=== PATIENT | female | born 1985 | race Caucasian/White ===

== ENCOUNTER 2021-11-12 13:19 | Outpatient (REF) | payer MEDICAID, SELFPAY ==
--- NOTE | ~2021-11-12 | US_ITS ---
EXAMINATION: US DIAGNOSTIC ULTRASOUND BREAST, RIGHT CLINICAL INFORMATION: Right breast mass. COMPARISON: April 05, 2019. TECHNIQUE: Ultrasound of the breast is performed with real-time jackson scale imaging and color Doppler. FINDINGS: Targeted right breast ultrasound demonstrates a 4.5 x 4.0 x 4.5 cm heterogeneous hypoechoic mass at approximately 3:00 position 3 cm from the nipple. Just posterior to this and possibly attached to it there is a heterogeneous hypoechoic structure measuring approximately 1.5 x 0.9 cm in size. There is increase through sound transmission. The lesion is wider than it is tall. No internal vascularity is present however the anterior margin is not as smoothly circumscribed and there is adjacent vascularity present. No edema within the adjacent tissues is seen. The overlying skin is not reddened and there is no complaint of pain unless she palpates the lesion. No Brownian movement is seen to suggest debris within a cyst. This may possibly represent a complex cyst however a solid mass such as a phyllodes tumor cannot be excluded and attempt at aspiration with ultrasound guidance is recommended. If the lesion does not aspirate then core biopsy is recommended. Results are discussed with the patient at time of visit. [facility] patient navigator called above recommendation to Mary at referring provider's office. US/US breast RT limited IMPRESSION: Development of right breast mass as described for which attempted aspiration is recommended. If the lesion does not aspirate then recommend core biopsy. ASSESSMENT: BI-RADS 4: Suspicious (subcategory 4A: Low suspicion for malignancy) RECOMMENDATION: Ultrasound-guided aspiration/biopsy
--- NOTE | ~2021-11-12 | MM_ITS ---
EXAMINATION: MM DIAGNOSTIC DIGITAL BREAST TOMOSYNTHESIS, BILATERAL TARGETED RIGHT BREAST ULTRASOUND CLINICAL INFORMATION: Right breast pain. The lifetime risk of breast cancer based on the Tyrer-Cuzick Model is 13.7%. COMPARISON: Mammography: 04/05/2019. TECHNIQUE: Digital breast tomosynthesis is performed in both the craniocaudal and mediolateral oblique views along with computer-aided detection (CAD). Synthesized 2D images are generated from the tomosynthesis. FINDINGS: There are scattered areas of fibroglandular density (ACR BI-RADS breast composition Category b). There is a stable parenchymal pattern within the left breast with no new abnormal dominant mass or suspicious grouping of microcalcifications. Within the right breast anteriorly the patient has developed a partially circumscribed 4.4 x 4.7 x 4.7 cm mass and directly posterior to this there is a 1.0 x 1.6 cm density. Targeted right breast ultrasound demonstrates a 4.5 x 4.0 x 4.5 cm heterogeneous hypoechoic mass at approximately 3 o'clock position 3 cm from the nipple. Just posterior to this and possibly attached to it there is a heterogeneous hypoechoic structure measuring approximately 1.5 x 0.9 cm in size. There is increase through sound transmission. The lesion is wider than it is tall. No internal vascularity is present however the anterior margin is not as smoothly circumscribed and there is adjacent vascularity present. No edema within the adjacent tissues is seen. The overlying skin is not reddened and there is no complaint of pain. No Brownian movement is seen to suggest debris within a cyst. This may possibly represent a complex cyst however a solid mass such as a phyllodes tumor cannot be excluded and attempt at aspiration with ultrasound guidance is recommended. If the lesion does not aspirate, then core biopsy is recommended. Results are discussed with the patient at time of visit. [facility] patient navigator called above recommendation to Mary at referring provider's office. MM/MM tomosynthesis diagnostic BI IMPRESSION: Development of right breast mass as described for which attempted aspiration is recommended. If the lesion does not aspirate, then recommend core biopsy. ASSESSMENT: BI-RADS 4: Suspicious (subcategory 4A: Low suspicion for malignancy). RECOMMENDATION: Ultrasound-guided aspiration/biopsy.
== END 2021-11-12 13:20 | disposition home or self-care (01) ==
LOC: HO.MAMMO 13:19
PROVIDERS: PCP Internal Medicine Geriatric Medicine; Visit Provider Internal Medicine
DX: N64.4 Mastodynia (principal); N63.15 Unspecified lump in the right breast, overlapping quadrants
CPT/HCPCS: 76642; 77062; 77066

== ENCOUNTER → 2021-11-19 08:32 | Outpatient (BNVA) | payer MEDICAID, SELFPAY | PROVIDERS: PCP Internal Medicine Geriatric Medicine; Referring Provider Internal Medicine Geriatric Medicine; Visit Provider Surgery | DX: R92.8 Other abnormal and inconclusive findings on diagnostic imaging of breast (principal); N63.10 Unspecified lump in the right breast, unspecified quadrant | CPT/HCPCS: 99202 ==

== ENCOUNTER 2021-11-22 07:44 | Outpatient (REF) | payer MEDICAID, SELFPAY ==
--- NOTE | ~2021-11-22 | US_ITS ---
EXAMINATION: US ULTRASOUND-GUIDED CYST ASPIRATION BREAST, RIGHT MM DIAGNOSTIC DIGITAL BREAST TOMOSYNTHESIS, RIGHT CLINICAL INFORMATION: Age 36 with tender mass right breast subareolar 3:00 position measuring approximately 4.7 cm. Aspiration recommended to confirm cyst. If lesion will not aspirate, then core biopsy. COMPARISON: Diagnostic mammography and targeted right breast ultrasound 11/12/2021 FINDINGS: Proper informed consent is obtained from the patient after discussion of the procedure, potential risks and complications, and alternatives. Patient was given an opportunity for questions. The patient appeared to understand. The patient consented to the procedure and signed the consent form. Hospital provided buggy ladle tender assisted for both the consent and throughout the procedure. LOCATION: 3:00 subareolar GUIDANCE: Ultrasound-guided; aseptic technique. LESION: Macrolobulated mass with superficial peripheral hyperemia, overall size approximately 4.7 x 4.4 x 4.7 cm. APPROACH: Oblique caudal cranial ANESTHESIA: 7 mL carbonated 1% lidocaine NEEDLE: 18-gauge spinal. ASPIRATION: 39 mL purulent appearing opaque fluid. Two 10 mL syringes of fluid sent to lab for Gram stain, culture and sensitivity. Following aspiration, the cavity collapsed down to 2 linear arms, the more superficial 0.7 cm thickness by 4.7 x 3.7 cm and the deeper extension measuring 2.9 cm in length by 0.7 cm in thickness. There is surrounding hyperemia on color Doppler, predominantly superficial side subdermal. Results called to rn medical surgical (Carmel) for Dr. Gilliam. Patient will receive prescription for antibiotic coverage from Dr. Gilliam's office. Arrangements will be made for follow-up ultrasound and clinical evaluation. [facility]igator to assist in follow up appointments. US/US breast cyst asp RT IMPRESSION: Aspiration 39 mL purulent appearing opaque fluid. Microbiology pending. ASSESSMENT: BI-RADS 3: Probably Benign RECOMMENDATION: Patient will receive prescription for antibiotic coverage from Dr. Gilliam's office today. Arrangements will be made for follow-up ultrasound and clinical evaluation. This patient's information was entered into a reminder system with a target due date for their next mammogram.
== END 2021-11-22 07:45 | disposition home or self-care (01) ==
LOC: HO.MAMMO 07:44
PROVIDERS: PCP Internal Medicine Geriatric Medicine; Visit Provider Surgery
DX: N63.10 Unspecified lump in the right breast, unspecified quadrant (principal); R92.8 Other abnormal and inconclusive findings on diagnostic imaging of breast
CPT/HCPCS: 19000; 87071; 87073; 87205

== ENCOUNTER → 2021-12-02 11:10 | Outpatient (BNVA) | payer MEDICAID, SELFPAY | PROVIDERS: PCP Internal Medicine Geriatric Medicine; Referring Provider Internal Medicine Geriatric Medicine; Visit Provider Surgery | DX: Z48.817 Encounter for surgical aftercare following surgery on the skin and subcutaneous tissue (principal); R92.8 Other abnormal and inconclusive findings on diagnostic imaging of breast; Z87.2 Personal history of diseases of the skin and subcutaneous tissue | CPT/HCPCS: 99212 ==

== ENCOUNTER 2021-12-07 07:59 | Outpatient (REF) | payer MEDICAID, SELFPAY ==
--- NOTE | ~2021-12-07 | US_ITS ---
EXAMINATION: US DIAGNOSTIC ULTRASOUND BREAST, RIGHT US ULTRASOUND-GUIDED CYST ASPIRATION BREAST, RIGHT CLINICAL INFORMATION: Follow-up abscess right breast. Re aspirate if recurrent. Prior aspiration 11/22/2021 (Gram stain: 4+ polys; 4+ red blood cells; No organisms seen. Routine Culture (final): Corynebacterium species 2+). COMPARISON: Right breast ultrasound 11/12/2021, ultrasound-guided right breast aspiration 11/22/2021. US BREAST, RIGHT TECHNIQUE: Ultrasound of the right breast is performed with real-time jackson scale imaging and color Doppler. FINDINGS: There is a complicated cyst subareolar 3:00 recurrent fluid collection with surrounding hyperemia and overall dimensions 3.8 x 2.4 x 3.5 cm. Prior dimensions pre aspiration were 4.7 x 4.4 x 4.7 cm and post aspiration mentions 0.7 cm thickness by 4.7 x 3.7 cm. No skin thickening or edema tracking in soft tissue planes. Results called to office (NIKKO Cooley) for Dr. Gilliam at time of imaging. US ASPIRATION BREAST, RIGHT FINDINGS: Proper informed consent is obtained from the patient after discussion of the procedure, potential risks and complications, and alternatives. Patient was given an opportunity for questions. The patient appeared to understand. The patient consented to the procedure and signed the consent form. Hospital provided curator of manuscripts assisted for the consent and throughout the procedure. LOCATION: 3:00 retroareolar GUIDANCE: Ultrasound-guided; aseptic technique. LESION: Complicated cyst with surrounding hyperemia and overall dimensions 3.8 x 2.4 x 3.5 cm. APPROACH: Oblique mediolateral. ANESTHESIA: 5 mL carbonated 1% lidocaine. NEEDLE: 18-gauge spinal. ASPIRATION: 17 mL hemorrhagic purulent opaque fluid aspirated. Syringe with 11 mL fluid sent to laboratory for microbiology (Gram stain, culture and sensitivity). Following aspiration, the cavity collapsed measuring approximately 0.6 cm in thickness, 3.8 cm x 4.1 cm across. Patient tolerated procedure well with no immediate complication. Results called to biomedical photographer (Polly) for Dr. Gilliam. Patient provided appointment to follow-up with Dr. Gilliam and follow up ultrasound. US/US breast cyst asp RT IMPRESSION: 1. Recurrence subareolar abscess from post aspiration size 11/22/2021. Size is smaller than prior pre aspiration measurements. 2. Aspiration 17 mL hemorrhagic clearly opaque fluid. Microbiology pending. ASSESSMENT: BI-RADS 3: Probably Benign RECOMMENDATION: Follow-up clinical appointment with Dr. Gilliam. Follow-up ultrasound right breast.
--- NOTE | ~2021-12-07 | US_ITS ---
EXAMINATION: US DIAGNOSTIC ULTRASOUND BREAST, RIGHT US ULTRASOUND-GUIDED CYST ASPIRATION BREAST, RIGHT CLINICAL INFORMATION: Follow-up abscess right breast. Re aspirate if recurrent. Prior aspiration 11/22/2021 (Gram stain: 4+ polys; 4+ red blood cells; No organisms seen. Routine Culture (final): Corynebacterium species 2+). COMPARISON: Right breast ultrasound 11/12/2021, ultrasound-guided right breast aspiration 11/22/2021. US BREAST, RIGHT TECHNIQUE: Ultrasound of the right breast is performed with real-time jackson scale imaging and color Doppler. FINDINGS: There is a complicated cyst subareolar 3:00 recurrent fluid collection with surrounding hyperemia and overall dimensions 3.8 x 2.4 x 3.5 cm. Prior dimensions pre aspiration were 4.7 x 4.4 x 4.7 cm and post aspiration mentions 0.7 cm thickness by 4.7 x 3.7 cm. No skin thickening or edema tracking in soft tissue planes. Results called to office (NIKKO Cooley) for Dr. Gilliam at time of imaging. US ASPIRATION BREAST, RIGHT FINDINGS: Proper informed consent is obtained from the patient after discussion of the procedure, potential risks and complications, and alternatives. Patient was given an opportunity for questions. The patient appeared to understand. The patient consented to the procedure and signed the consent form. Hospital provided health services information specialist assisted for the consent and throughout the procedure. LOCATION: 3:00 retroareolar GUIDANCE: Ultrasound-guided; aseptic technique. LESION: Complicated cyst with surrounding hyperemia and overall dimensions 3.8 x 2.4 x 3.5 cm. APPROACH: Oblique mediolateral. ANESTHESIA: 5 mL carbonated 1% lidocaine. NEEDLE: 18-gauge spinal. ASPIRATION: 17 mL hemorrhagic purulent opaque fluid aspirated. Syringe with 11 mL fluid sent to laboratory for microbiology (Gram stain, culture and sensitivity). Following aspiration, the cavity collapsed measuring approximately 0.6 cm in thickness, 3.8 cm x 4.1 cm across. Patient tolerated procedure well with no immediate complication. Results called to medical superintendent (Polly) for Dr. Gilliam. Patient provided appointment to follow-up with Dr. Gilliam and follow up ultrasound. US/US breast RT limited IMPRESSION: 1. Recurrence subareolar abscess from post aspiration size 11/22/2021. Size is smaller than prior pre aspiration measurements. 2. Aspiration 17 mL hemorrhagic clearly opaque fluid. Microbiology pending. ASSESSMENT: BI-RADS 3: Probably Benign RECOMMENDATION: Follow-up clinical appointment with Dr. Gilliam. Follow-up ultrasound right breast.
[2021-12-07] MEDS: Sodium Bicarbonate 8.4% 50 MEQ/50 ML VIAL SUBCUT (09:17)
[2021-12-07] MEDS: Lidocaine HCl 1 % 20 ML VIAL 9 ML SUBCUT (09:18)
== END 2021-12-07 08:00 | disposition home or self-care (01) ==
LOC: HO.MAMMO 07:59
PROVIDERS: Visit Provider Surgery
DX: R92.8 Other abnormal and inconclusive findings on diagnostic imaging of breast (principal); N63.10 Unspecified lump in the right breast, unspecified quadrant
CPT/HCPCS: 19000; 76642; 87071; 87073; 87205

== ENCOUNTER 2021-12-14 09:51 | Outpatient (REF) | payer MEDICAID, SELFPAY ==
--- NOTE | ~2021-12-14 | US_ITS ---
EXAMINATION: US DIAGNOSTIC ULTRASOUND BREAST, RIGHT CLINICAL INFORMATION: Follow-up sterile abscess right breast. Prior re-aspiration demonstrates no organisms or growth. COMPARISON: Ultrasound right breast 12/07/2021, 11/22/2021, 11/12/2021. TECHNIQUE: Ultrasound right breast is targeted to the retroareolar region using grayscale imaging and color Doppler without and with harmonics. FINDINGS: The fluid collection 3:00 retroareolar region is increased in size from prior post aspiration dimensions but decreased in size when compared with prior pre aspiration dimensions. There is no new collection or architectural abnormality. No skin thickening or edema tracking in soft tissue planes. The overall size is 2.8 x 1.5 x 2.1 cm with peripheral mural echogenicity and inner anechoic fluid component. The fluid component measures 2.0 x 1.2 x 1.3 cm compared with prior dimensions 3.8 x 2.4 x 3.5 cm on prior exam 12/07/2021 and prior dimensions 4.7 x 4.4 x 4.7 cm on exam 11/22/2021. There is mild surrounding hyperemia again seen on color Doppler. Results are discussed with the patient at time of visit, using an insulation manager. Patient notes no right breast tenderness and there is no erythema. Patient feels markedly improved from prior visits. Results discussed with Dr. Gilliam. Management plan is for patient to return to Dr. Lentz for follow-up clinical visit in 2 weeks and targeted right breast ultrasound on same day. US/US breast RT limited IMPRESSION: Right retroareolar collection with current dimensions decreased when compared with prior pre-aspiration dimensions. No new collection. ASSESSMENT: BI-RADS 3: Probably Benign RECOMMENDATION: Patient to follow-up with Dr. Gilliam for clinical appointment in 2 weeks and targeted right breast ultrasound on same day.
== END 2021-12-14 09:52 | disposition home or self-care (01) ==
LOC: HO.MAMMO 09:51
PROVIDERS: Visit Provider Surgery
DX: N61.1 Abscess of the breast and nipple (principal); R92.8 Other abnormal and inconclusive findings on diagnostic imaging of breast
CPT/HCPCS: 76642; 99212

== ENCOUNTER 2021-12-31 11:06 | Outpatient (REF) | payer MEDICAID, SELFPAY ==
--- NOTE | ~2021-12-31 | US_ITS ---
EXAMINATION: US DIAGNOSTIC ULTRASOUND BREAST, RIGHT CLINICAL INFORMATION: Follow-up sterile abscess right breast. Patient feels clinically well. COMPARISON: Ultrasound right breast 12/14/2021, 12/07/2021 (re-aspiration), 11/22/2021 (aspiration), 11/12/2021. TECHNIQUE: Ultrasound of the right anterior breast is performed with real-time jackson scale imaging and color Doppler. FINDINGS: The complex fluid collection 3:00 retroareolar region has overall dimensions approximately 3.0 x 1.9 x 2.4 cm compared with prior measurements 2.8 x 1.5 x 2.1 cm. There is increased internal peripheral mural echogenicity likely granulation tissue. The fluid component inside the lesion is decreased, current measurements 1.7 x 0.8 x 1.4 cm compared with prior measurements 2.0 x 1.2 x 1.3 cm. Results called and discussed with Dr. Gilliam at time of dictation visit. Results also discussed with patient at time of appointment using an pulverizer operator. Patient to follow-up right breast ultrasound with surgical clinical follow-up appointment same day in 4-6 weeks. US/US breast RT limited IMPRESSION: The complex fluid collection 3:00 retroareolar right breast has similar overall dimensions but with decreased internal fluid component. ASSESSMENT: BI-RADS 3: Probably Benign RECOMMENDATION: Targeted right breast ultrasound in 4-[address] Gilliam to follow ultrasound, same day. This patient's information was entered into a reminder system with a target due date for their next breast imaging.
== END 2021-12-31 11:07 | disposition home or self-care (01) ==
LOC: HO.MAMMO 11:06
PROVIDERS: Visit Provider Surgery
DX: N61.1 Abscess of the breast and nipple (principal)
CPT/HCPCS: 76642; 99212

== ENCOUNTER 2022-02-08 12:52 | Outpatient (REF) | payer MEDICAID, SELFPAY ==
--- NOTE | ~2022-02-08 | US_ITS ---
EXAMINATION: US DIAGNOSTIC ULTRASOUND BREAST, RIGHT CLINICAL INFORMATION: Follow-up sterile abscess right breast. No discharge. Patient notes no residual symptoms. Age 36. TC score 14%. COMPARISON: Targeted right breast ultrasound 12/31/2021, 12/14/2021, 12/07/2021, 11/12/2021; right breast ultrasound-guided cyst aspiration 12/07/2021 and 11/22/2021. TECHNIQUE: Ultrasound of the right breast is performed with real-time jackson scale imaging and color Doppler. FINDINGS: The fluid collection 3:00 retroareolar region is decreased in size from prior exam 12/31/2021 and now appears anechoic. The thickness is 0.8 cm compared with prior measurement 1.9 cm. The transverse and longitudinal dimensions are similar. Overall dimensions are 2.7 x 0.8 x 2.3 cm compared with prior dimensions 3.0 x 1.9 x 2.4 cm. There is some color flow superficial to the collection but not circumferentially around the collection. No edema tracking in soft tissue planes. There is a probable apocrine cyst 2 cm superior to the collection not previously described, measuring 1.0 x 1.2 cm. The margins are circumscribed and there is increased through-transmission of sound and no associated color flow. Internally, there is geographic echogenicity. Preliminary results are discussed with patient at time of visit with assistance of an bus van driver. Patient to see Dr. Gilliam this afternoon for clinical follow-up. Findings reviewed at discussed with Dr. Gilliam on 02/08/2022. Management plan is for follow-up diagnostic mammography, one year from prior mammography. Targeted right breast ultrasound may be performed at same visit to reassess the anterior right breast and probable benign apocrine cyst. US/US breast RT limited IMPRESSION: -Retroareolar 3:00 fluid collection decreased from prior exam 12/31/2021. -Probable apocrine cyst 2 cm superior to the collection measuring 1.2 cm, not previously described. ASSESSMENT: BI-RADS 3: Probably Benign RECOMMENDATION: Diagnostic bilateral mammography at time of annual exam with targeted right breast ultrasound at same visit. This patient's information was entered into a reminder system with a target due date for their next mammogram.
== END 2022-02-08 12:53 | disposition home or self-care (01) ==
LOC: HO.MAMMO 12:52
PROVIDERS: Visit Provider Surgery
DX: N61.1 Abscess of the breast and nipple (principal)
CPT/HCPCS: 76642; 99212

== ENCOUNTER 2023-10-03 09:32 | Outpatient (REF) | payer MEDICAID, SELFPAY ==
[2023-10-03 10:58] LABS: MANUAL DIFF FLAG NO
[2023-10-03 11:09] LABS: Basophils Absolute Auto 0.1 X10*3/uL (0.0-0.2); Basophils Percent Auto 0.7 % (0-2); Eosinophils Absolute Auto 0.2 X10*3/uL (0.0-0.4); Eosinophils Percent Auto 2.1 % (0-4); Hemoglobin 12.7 g/dl (12.0-16.0); Imm Gran Abs Auto 0.02 X10*3/uL (0.00-0.03); Imm Gran Pct Auto 0.3 % (0.0-0.4); Lymphocytes Absolute Auto 2.8 X10*3/uL (1.2-4.9); Lymphocytes Percent Auto 36.9 % (20-40); Mean Corpuscular HGB Conc 31.8 g/dl (31.0-35.0); Mean Corpuscular Hemoglobin 25.3 pg (27.0-33.0); Mean Corpuscular Volume 79.8 fL (80.0-98.0); Mean Platelet Volume 10.4 fL (9.4-12.3); Monocytes Absolute Auto 0.4 X10*3/uL (0.1-1.2); Monocytes Percent Auto 5.2 % (2-11); Neutrophils Absolute Auto 4.2 x10*3/uL (2.0-8.3); Neutrophils Percent Auto 54.8 % (45-73); Platelet Count 291 X10*3/uL (160-400); Red Blood Count 5.01 X10*6/uL (4.20-5.50); White Blood Count 7.7 X10*3/uL (4.8-10.8)
[2023-10-03 13:00] LABS: Alanine Aminotransferase 87 U/L (0-31); Albumin Level 4.4 g/dL (3.5-5.0); Alkaline Phosphatase 82 U/L (39-117); Anion Gap 13 (12-20); Aspartate Amino Transferase 39 U/L (5-31); Bilirubin Total 0.4 mg/dL (0.0-1.0); Blood Urea Nitrogen 8 mg/dL (9-16); Calcium 9.7 mg/dL (8.4-10.2); Carbon Dioxide 28 mmol/L (22-29); Chloride 103 mmol/L (96-108); Cholesterol 222 mg/dL (<200); Estimated Glomerular Filt Rate > 60; Glucose Random 101 mg/dL (60-115); HDL Cholesterol 40 mg/dL (>40); LDL Cholesterol Calculated 148 mg/dL (<100); Potassium 3.8 mmol/L (3.3-5.1); Sodium 140 mmol/L (135-145); TSH reflex Free T4 3.84 uIU/mL (0.32-4.0); Total Protein 7.5 g/dL (6.5-8.0); Triglycerides 170 mg/dL (<150); Vitamin D 25-OH Total 51.3 ng/mL (>30)
== END 2023-10-03 09:33 | disposition home or self-care (01) ==
LOC: HO.HHCL 09:32
PROVIDERS: Visit Provider Internal Medicine Geriatric Medicine
DX: Z13.1 Encounter for screening for diabetes mellitus (principal); Z13.220 Encounter for screening for lipoid disorders; E55.9 Vitamin D deficiency, unspecified; F25.1 Schizoaffective disorder, depressive type; R79.89 Other specified abnormal findings of blood chemistry; Z86.2 Personal history of diseases of the blood and blood-forming organs and certain disorders involving the immune mechanism; R07.89 Other chest pain
CPT/HCPCS: 36415; 80053; 80061; 82306; 84443; 85025

== ENCOUNTER 2023-11-28 13:32 | Outpatient (REF) | payer MEDICAID, SELFPAY ==
--- NOTE | ~2023-11-28 | MM_ITS ---
EXAMINATION: MM SCREENING DIGITAL BREAST TOMOSYNTHESIS, BILATERAL CLINICAL INFORMATION: Screening. Asymptomatic. COMPARISON: Mammography: This study is compared with prior exams dating back to 2019. TECHNIQUE: Digital breast tomosynthesis is performed in both the craniocaudal and mediolateral oblique views along with computer-aided detection (CAD). Synthesized 2D images are generated from the tomosynthesis. FINDINGS: There are scattered areas of fibroglandular density (ACR BI-RADS breast composition Category b). There are no significant masses, abnormal calcifications, or other abnormalities. In the interval since the last mammogram from 2021, the previously noted right retroareolar breast cyst is absent. MM/MM tomosynthesis screening BI IMPRESSION: No mammographic evidence of malignancy. ASSESSMENT: BI-RADS BI-RADS 1 - Negative RECOMMENDATION: Routine annual mammography screening. 1 year F/U This examination should not preclude the clinical evaluation of a suspicious palpable abnormality. This patient's information was entered into a reminder system with a target due date for their next mammogram.
== END 2023-11-28 13:33 | disposition home or self-care (01) ==
LOC: HO.MAMMO 13:32
PROVIDERS: Visit Provider Internal Medicine Geriatric Medicine
DX: Z12.31 Encounter for screening mammogram for malignant neoplasm of breast (principal)
CPT/HCPCS: 77063; 77067

== ENCOUNTER → 2023-11-28 14:15 | Outpatient (BNV) | payer MEDICAID, SELFPAY | PROVIDERS: Visit Provider Radiology Diagnostic Radiology | DX: Z12.31 Encounter for screening mammogram for malignant neoplasm of breast (principal) | CPT/HCPCS: 77063; 77067 ==

== ENCOUNTER 2024-04-15 09:53 | Outpatient (REF) | payer MEDICAID, SELFPAY ==
--- NOTE | ~2024-04-15 | US_ITS ---
EXAMINATION: US ABDOMEN COMPLETE CLINICAL INFORMATION: Fatty liver. COMPARISON: CT abdomen and pelvis 08/02/2019. Ultrasound abdomen complete 07/17/2019. TECHNIQUE: Real-time imaging of the abdominal viscera. FINDINGS: PANCREAS: Normal. ABDOMINAL AORTA: The proximal, mid, and distal segments are normal in caliber. INFERIOR VENA CAVA: Visualized portions are normal. LIVER: Enlarged liver with increased parenchymal echogenicity sparing areas adjacent to the gallbladder fossa. No suspicious liver mass. No intrahepatic biliary ductal dilatation. GALLBLADDER: The gallbladder is contracted and filled with stones limiting visualization of the wall. No evidence of pericholecystic free fluid. Negative Carrillo's sign. COMMON BILE DUCT: Normal in caliber measuring 0.4 cm in diameter. RIGHT KIDNEY: Normal. No hydronephrosis. No renal calculi or focal parenchymal lesions. The kidney measures 11.0 cm in maximum dimension. LEFT KIDNEY: A previously described lesion in the left kidney on the ultrasound from 07/17/2019 is not visualized in this examination. No hydronephrosis. No renal calculi or focal parenchymal lesions. The kidney measures 9.2 cm in maximum dimension. SPLEEN: Upper size of normal. The spleen measures 12.0 cm in maximum dimension. FREE FLUID: None. US/US abdomen complete IMPRESSION: 1. Hepatomegaly with increased parenchymal echogenicity suggesting hepatic steatosis. 2. Cholelithiasis without sonographic evidence of acute cholecystitis. 3. A previously described lesion in the left kidney on the ultrasound from 07/17/2019 is not visualized in this examination.
== END 2024-04-15 09:54 | disposition home or self-care (01) ==
LOC: HO.US 09:53
PROVIDERS: PCP Internal Medicine Geriatric Medicine; Visit Provider Internal Medicine Geriatric Medicine
DX: K76.0 Fatty (change of) liver, not elsewhere classified (principal)
CPT/HCPCS: 76700

== ENCOUNTER 2024-08-01 08:26 | Outpatient (REF) | payer MEDICAID, SELFPAY ==
[2024-08-01 11:39] LABS: Estimated Average Glucose 114 mg/dL; Hemoglobin A1C 115.2434 umol/L; Hemoglobin A1c % 5.6 % (<6.0); Total Hemoglobin (HGBA1C) 3038.4659 umol/L
[2024-08-01 12:06] LABS: HBS Num1 17.75 mIU/mL (0-7.99); HBsAGNum1 0.37 S/CO (0.00-0.99); Hepatitis B Surface Antigen Negative (Negative); ~HepC Num1 0.62 S/CO (0.00-0.79); ~Hepatitis B Surface Antibody REACTIVE (Nonreactive); ~Hepatitis C Antibody Nonreactive (Nonreactive)
[2024-08-01 12:21] LABS: Hepatitis A Antibody IgG Nonreactive (Nonreactive); ~Hepatitis A Antibody IgG 0.32 S/CO (0.00-0.99)
[2024-08-08 03:04] LABS: FIB-ALT 68 U/L (6-29); FIB-Alpha-2-Macroglobulin 171 mg/dL (106-279); FIB-Apolipoprotein A1 125 mg/dL (101-198); FIB-GGT 43 U/L (3-55); FIB-Haptoglobin 154 mg/dL (43-212); FIB-Total Bilirubin 0.4 mg/dL (0.2-1.2); Liver Fibrosis Score 0.12; Liver Fibrosis Stage F0; Nec Inflam Act Grade A1; Nec Inflam Act Score 0.34; Reference ID 5144722
== END 2024-08-01 08:27 | disposition home or self-care (01) ==
LOC: HO.HHCL 08:26
PROVIDERS: Visit Provider Internal Medicine Geriatric Medicine
DX: K76.0 Fatty (change of) liver, not elsewhere classified (principal); R63.5 Abnormal weight gain
CPT/HCPCS: 36415; 81596; 83036; 86706; 86708; 86803; 87340